=== PATIENT | female | born 1960 | race Caucasian/White ===

== ENCOUNTER 2021-12-24 10:39 | Observation (INO) ==
[2021-12-24] MEDS ORDERED: TOPROL XL PO ONE (10:53)
--- NOTE | 2021-12-24 10:56 | DR.GENAD ---
HPI Time Seen Time Seen by Provider: 12/24/21 10:54 PE Vital Signs Vitals: Temperature 98.1 F Pulse Rate 162 Respiratory Rate 22 Blood Pressure 142/95 O2 Sat by Pulse Oximetry 99 ROR Labs Reviewed Result Diagrams: 12/24/21 11:40 12/24/21 11:40 Laboratory: WBC 8.4 X10^3/uL (3.6-10.0) 12/24/21 11:40 RBC 4.65 X10^6/uL (3.5-5.4) 12/24/21 11:40 Hgb 13.4 g/dL (12.0-16.0) 12/24/21 11:40 Hct 38.8 % (36.0-47.0) 12/24/21 11:40 MCV 83.6 fL (80.0-100.0) 12/24/21 11:40 MCH 28.7 pg (27.0-34.0) 12/24/21 11:40 MCHC 34.4 g/dL (33.0-35.0) 12/24/21 11:40 RDW 15.0 % (11.6-16.5) 12/24/21 11:40 Plt Count 276 X10^3/uL (150.0-450.0) 12/24/21 11:40 MPV 8.5 fL (7.4-11.0) 12/24/21 11:40 Neut % (Auto) 64.9 % (42.0-75.0) 12/24/21 11:40 Lymph % (Auto) 20.8 % (21.0-51.0) L 12/24/21 11:40 [place] % (Auto) 5.5 % (0.0-13.0) 12/24/21 11:40 Eos % (Auto) 8.1 % (0.9-2.9) H 12/24/21 11:40 Baso % (Auto) 0.7 % (0.2-1.0) 12/24/21 11:40 Neut # (Auto) 5.5 x10^3/uL (2.2-4.8) H 12/24/21 11:40 Lymph # (Auto) 1.8 X10^3/uL (1.3-2.9) 12/24/21 11:40 [place] # (Auto) 0.5 x10^3/uL (0.3-0.8) 12/24/21 11:40 Eos # (Auto) 0.7 x10^3/uL (0.0-0.2) H 12/24/21 11:40 Baso # (Auto) 0.1 X10^3/uL (0.0-0.1) 12/24/21 11:40 Absolute Nucleated RBC 0.2 /100WBC 12/24/21 11:40 PT 15.5 SECONDS (11.8-14.3) 12/24/21 11:40 INR Target Range - 12/24/21 11:40 INR 1.27 (0.8-1.3) 12/24/21 11:40 APTT 25.2 SECONDS (22.9-36.5) 12/24/21 11:40 PTT Comment - 12/24/21 11:40 D-Dimer 0.63 ug/ml (0.0-0.57) H 12/24/21 11:40 Sodium 142 mmol/L (136-145) 12/24/21 11:40 Corrected Sodium 143 mmol/L (136-145) 12/24/21 11:40 Potassium 3.9 mmol/L (3.5-5.1) 12/24/21 11:40 Chloride 105 mmol/L (98-107) 12/24/21 11:40 Carbon Dioxide 27.0 mmol/L (21-32) 12/24/21 11:40 BUN 14 mg/dL (7-18) 12/24/21 11:40 Creatinine 0.85 mg/dL (0.55-1.02) 12/24/21 11:40 Est GFR (MDRD) Af Amer > 60 (>60) 12/24/21 11:40 Est GFR (MDRD) Non-Af > 60 (>60) 12/24/21 11:40 Glucose 136 mg/dL (65-99) H 12/24/21 11:40 Calcium 9.1 mg/dL (8.5-10.1) 12/24/21 11:40 Corrected Calcium TNP 12/24/21 11:40 Total Bilirubin 0.70 mg/dL (0.2-1.0) 12/24/21 11:40 AST 47 Units/L (15-37) H 12/24/21 11:40 ALT 66 Units/L (12-78) 12/24/21 11:40 Alkaline Phosphatase 70 Units/L (46-116) 12/24/21 11:40 Creatine Kinase 99 Units/L (26-192) 12/24/21 11:40 Troponin I High Sens 9.8 ng/L (4.0-60.0) 12/24/21 11:40 B-Natriuretic Peptide 28.7 pg/mL (0-79) 12/24/21 11:40 Total Protein 7.7 g/dL (6.4-8.2) 12/24/21 11:40 Albumin 3.7 g/dL (3.4-5.0) 12/24/21 11:40 Globulin 4.0 g/dL (2.5-4.5) 12/24/21 11:40 Albumin/Globulin Ratio 0.9 Ratio (1.1-2.1) L 12/24/21 11:40 Opioid Opioid Risk Tool Total: 0 Total Score Risk Category: Low Risk Copyright: Steven GALARZA predicting aberrant behaviors Discharge Plan Discharge Plan Patient Disposition: HOME, SELF-CARE Condition: Stable Prescriptions: No Action furosemide 40 mg tablet 40 mg PO BID atorvastatin 20 mg tablet 20 mg PO HS metformin 850 mg tablet 850 mg PO QDAY levothyroxine 88 mcg tablet 88 mcg PO QDAY potassium chloride 20 mEq tablet,ER particles/crystals 20 meq PO BID gabapentin 300 mg capsule 300 mg PO TID metoprolol succinate 25 mg tablet extended release 24 hr 25 mg PO QDAY albuterol sulfate 90 mcg/actuation HFA aerosol inhaler 2 puff INHALATION Q4H PRN Health Concerns: Post Hospitalization: new medications and changes needed to prevent readmission or further decline. Pt educated and given instructions on all concerns. Plan of Treatment: Continue with present treatment and follow up plan. Pt is to keep follow up appointment as instructed and take medications as ordered. Orders to Discharge Patient Discharge Orders: Transfer (Routine); Ordered 12/24/21 Ordered By: REAGAN GONZALEZ Follow ups/Referrals Follow ups/Referrals: YUMIKO IQBAL [Primary Care Provider] - 3 days Instructions Stand Alone Forms: Precautions for COVID19, [facility], Patient Portal, Social Distancing
[2021-12-24 11:00] VITALS: BMI 43.2
[2021-12-24] MEDS: TOPROL XL PO SCH (11:01)
[2021-12-24] MEDS ORDERED: CARDIZEM INJ 50 MG VIAL IVP ONE (11:48)
--- NOTE | 2021-12-24 11:50 | CT ---
HISTORYRight-sided headacheSTUDYCT brain without contrastCOMPARISONNoneTECHNIQUEMultiple axial images of the brain were obtained from the skull base to the vertex [without] administration of IV contrast.Dose reduction techniques including Automated Exposure Control (AEC) and adjustment of mA and kV were utlized.FINDINGS[No acute intraparenchymal hemorrhage or mass can be identified.] [No extra-axial fluid collections are seen.] [No alteration in the attenuation of the brain parenchyma can be identified to suggest acute or subacute ischemic change.] Mild small vessel ischemic changes are noted in the periventricular supratentorial white matter [the ventricular system is symmetric and nondilated.] [The extracranial structures are grossly unremarkable.]IMPRESSION[No acute intracranial process can be identified.]Electronically signed by: ASAD WALTER (Dec 24, 2021 11:48:30)
[2021-12-24 12:13] LABS: ALANINE AMINOTRANSFERASE 66 Units/L (12-78); ALBUMIN 3.7 g/dL (3.4-5.0); ALKALINE PHOSPHATASE 70 Units/L (46-116); ASPARTATE AMINO TRANSFERASE 47 Units/L (15-37); BLOOD UREA NITROGEN 14 mg/dL (7-18); CALCIUM 9.1 mg/dL (8.5-10.1); CHLORIDE 105 mmol/L (98-107); COR NA(FOR HYPERGLY) 143 mmol/L (136-145); CREATINE KINASE 99 Units/L (26-192); CREATININE 0.85 mg/dL (0.55-1.02); SODIUM 142 mmol/L (136-145); TOTAL PROTEIN 7.7 g/dL (6.4-8.2); eGFR NON BLACK RACES > 60 (>60)
[2021-12-24] MEDS ORDERED: CARDIZEM INJ 125 MG VIAL ONE (12:19)
[2021-12-24] MEDS ORDERED: DILTIAZEM 125mg/125mL-0.7%NACL 125 MG/125 ML PLAST..BAG IV ONE (12:19)
[2021-12-24 12:23] LABS: BASOPHILS # (AUTO) 0.1 X10^3/uL (0.0-0.1); BASOPHILS % (AUTO) 0.7 % (0.2-1.0); EOSINOPHILS # (AUTO) 0.7 x10^3/uL (0.0-0.2); EOSINOPHILS % (AUTO) 8.1 % (0.9-2.9); HEMATOCRIT 38.8 % (36.0-47.0); HEMOGLOBIN 13.4 g/dL (12.0-16.0); LYMPHOCYTES # (AUTO) 1.8 X10^3/uL (1.3-2.9); LYMPHOCYTES % (AUTO) 20.8 % (21.0-51.0); MEAN CORPUSCULAR HEMOGLOBIN 28.7 pg (27.0-34.0); MEAN CORPUSCULAR HGB CONC 34.4 g/dL (33.0-35.0); MEAN CORPUSCULAR VOLUME 83.6 fL (80.0-100.0); MEAN PLATELET VOLUME 8.5 fL (7.4-11.0); MONOCYTES # (AUTO) 0.5 x10^3/uL (0.3-0.8); MONOCYTES % (AUTO) 5.5 % (0.0-13.0); NEUTROPHILS # (AUTO) 5.5 x10^3/uL (2.2-4.8); NEUTROPHILS % (AUTO) 64.9 % (42.0-75.0); RED BLOOD COUNT 4.65 X10^6/uL (3.5-5.4); WHITE BLOOD COUNT 8.4 X10^3/uL (3.6-10.0)
[2021-12-24] MEDS: DILTIAZEM 125mg/125mL-0.7%NACL 125 MG/125 ML PLAST..BAG IV PRN ×2 (12:26→18:48)
[2021-12-24 12:31] LABS: INR 1.27 (0.8-1.3)
--- NOTE | 2021-12-24 16:30 | RAD ---
HISTORYRight sided lei/tachycardia.br HX: Diabetes.br Appendectomy,Cholecysectomy/hysterectomy/Hernia repairSTUDYCHEST, 1 [id number] diastinal silhouette within normal limits. No focal consolidation, pulmonary edema, sizeable pleural effusion, or visible pneumothorax. No acute osseous finding.IMPRESSIONNo acute appearing finding.Electronically signed by: Jae Villegas (Dec 24, 2021 16:28:13)
[2021-12-24] MEDS: ELIQUIS PO SCH (20:34)
[2021-12-24] MEDS ORDERED: CARDIZEM CD 120 MG 24-HR PO SCH (21:00)
[2021-12-24] MEDS ORDERED: TYLENOL 325 MG TAB PO PRN (23:13)
[2021-12-24 23:36] LABS: BILIRUBIN,URINE NEGATIVE (NEGATIVE); BLOOD/HEMOGLOBIN,URINE NEGATIVE (NEGATIVE); GLUCOSE, URINE NEGATIVE (NEGATIVE); KETONES,URINE NEGATIVE (NEGATIVE); LEUKOCYTE ESTERASE ,URINE NEGATIVE (NEGATIVE); NITRITES,URINE NEGATIVE (NEGATIVE); PROTEIN,URINE NEGATIVE (NEGATIVE); UROBILINOGEN,URINE NORMAL (NORMAL)
[2021-12-24 23:41] LABS: APPEARANCE,URINE CLEAR (CLEAR); COLOR,URINE YELLOW (YELLOW)
[2021-12-25 04:54] LABS: BASOPHILS # (AUTO) 0.1 X10^3/uL (0.0-0.1); BASOPHILS % (AUTO) 0.9 % (0.2-1.0); EOSINOPHILS # (AUTO) 0.7 x10^3/uL (0.0-0.2); EOSINOPHILS % (AUTO) 8.4 % (0.9-2.9); HEMATOCRIT 36.3 % (36.0-47.0); HEMOGLOBIN 12.6 g/dL (12.0-16.0); LYMPHOCYTES # (AUTO) 2.7 X10^3/uL (1.3-2.9); LYMPHOCYTES % (AUTO) 31.7 % (21.0-51.0); MEAN CORPUSCULAR HEMOGLOBIN 28.6 pg (27.0-34.0); MEAN CORPUSCULAR HGB CONC 34.6 g/dL (33.0-35.0); MEAN CORPUSCULAR VOLUME 82.5 fL (80.0-100.0); MEAN PLATELET VOLUME 8.2 fL (7.4-11.0); MONOCYTES # (AUTO) 0.4 x10^3/uL (0.3-0.8); MONOCYTES % (AUTO) 5.1 % (0.0-13.0); NEUTROPHILS # (AUTO) 4.7 x10^3/uL (2.2-4.8); NEUTROPHILS % (AUTO) 53.9 % (42.0-75.0); WHITE BLOOD COUNT 8.7 X10^3/uL (3.6-10.0)
[2021-12-25 04:56] LABS: INR 1.37 (0.8-1.3)
[2021-12-25 05:05] LABS: ALANINE AMINOTRANSFERASE 58 Units/L (12-78); ALBUMIN 3.4 g/dL (3.4-5.0); ALKALINE PHOSPHATASE 61 Units/L (46-116); ASPARTATE AMINO TRANSFERASE 44 Units/L (15-37); BLOOD UREA NITROGEN 15 mg/dL (7-18); CALCIUM 8.7 mg/dL (8.5-10.1); CARBON DIOXIDE 27.3 mmol/L (21-32); CHLORIDE 104 mmol/L (98-107); COR NA(FOR HYPERGLY) 141 mmol/L (136-145); CREATININE 0.79 mg/dL (0.55-1.02); SODIUM 140 mmol/L (136-145); TOTAL PROTEIN 7.1 g/dL (6.4-8.2); eGFR NON BLACK RACES > 60 (>60)
[2021-12-25 05:10] LABS: CHOL/HDL RATIO 2.5 (0.0-5.0); MAGNESIUM 2.1 mg/dL (2.0-2.9)
[2021-12-25] MEDS: ELIQUIS PO SCH (09:00)
[2021-12-25] MEDS: TOPROL XL PO SCH (09:00)
[2021-12-25 09:43] VITALS: BP 126/70
--- NOTE | 2021-12-25 10:48 | DR.H&P ---
H&P History & Physical for Day of: H&P Date: 12/24/21 Chief Complaint Chief Complaint: Heart racing Allergies Allergies Allergy/AdvReac Type Severity Reaction Status Date / Time codeine Allergy Verified 12/24/21 11:04 honey Allergy Verified 12/24/21 11:04 metoclopramide [From Reglan] Allergy Verified 12/24/21 11:04 ondansetron [From Zofran] Allergy Verified 12/24/21 11:04 History of Present Illness History of Present Illness: This is a pleasant 61-year-old white female who presented to the emergency department with complaints of her heart racing. She is a patient of Nilay Gudino, nurse practitioner in [place], [place]. She reports she had a recent cardiac work-up per Dr. Chaudhari here in [place], [place]. He told her that she had a heart beat that was skipping from time to time and put her on metoprolol ER. She is found to be in atrial for with RVR last night. We put her in ICU sulk administer a Cardizem drip and change her over to p.o. Cardizem as well. We will start her on Cardizem CD 120 mg p.o. daily on admission and we will continue the drip until her heart rate becomes below 100 then we will stop it. Labs look good overall do not see any elevated cardiac enzymes or ischemic changes on EKG. When she is rate controlled we will discharge home tomorrow. We will go ahead and start her on Eliquis 5 mg p.o. twice daily as well. Past Medical History Past Medical History: Diabetes, Migraines and Hypothyroidism Past Surgical History Surgical History: Appendectomy, Cholecystectomy, Hysterectomy and Other Family History Family Medical History: Diabetes Mellitus, Cancer, Coronary Artery Disease and Hypertension Social History Does patient currently use any type of tobacco product: No Have you used tobacco products in the last 12 months: No Type of Tobacco Use: None Does any household member use tobacco: No Alcohol Use: None Drug Use: None Medications Home Medications: codeine Allergy (Verified 12/24/21 11:04) honey Allergy (Verified 12/24/21 11:04) metoclopramide [From Reglan] Allergy (Verified 12/24/21 11:04) ondansetron [From Zofran] Allergy (Verified 12/24/21 11:04) CONTINUE taking the following medications albuterol sulfate 90 mcg/actuation aerosol inhaler 2 puff inhalation Q4H PRN 12/24/21 [History] atorvastatin 20 mg tablet 20 mg PO HS 12/24/21 [History] furosemide 40 mg tablet 40 mg PO BID 12/24/21 [History] gabapentin 300 mg capsule 300 mg PO TID 12/24/21 [History] levothyroxine 88 mcg tablet 88 mcg PO QDAY 12/24/21 [History] metformin 850 mg tablet 850 mg PO QDAY 12/24/21 [History] metoprolol succinate 25 mg tablet,extended release 24 hr 25 mg PO QDAY 12/24/21 [History] potassium chloride 20 mEq tablet,extended release(part/cryst) 20 meq PO BID 12/24/21 [History] New Prescriptions apixaban 2.5 mg tablet (Eliquis) 2.5 mg PO BID #60 tabs 12/25/21 [Rx] diltiazem HCl 120 mg capsule,extended release 24 hr (Cardizem CD) 120 mg PO QAM #60 caps 12/25/21 [Rx] Labs Result Diagrams: 12/25/21 04:15 12/25/21 04:15 Labs: Laboratory WBC 8.7 X10^3/uL (3.6-10.0) 12/25/21 04:15 RBC 4.40 X10^6/uL (3.5-5.4) 12/25/21 04:15 Hgb 12.6 g/dL (12.0-16.0) 12/25/21 04:15 Hct 36.3 % (36.0-47.0) 12/25/21 04:15 MCV 82.5 fL (80.0-100.0) 12/25/21 04:15 MCH 28.6 pg (27.0-34.0) 12/25/21 04:15 MCHC 34.6 g/dL (33.0-35.0) 12/25/21 04:15 RDW 15.0 % (11.6-16.5) 12/25/21 04:15 Plt Count 298 X10^3/uL (150.0-450.0) 12/25/21 04:15 MPV 8.2 fL (7.4-11.0) 12/25/21 04:15 Neut % (Auto) 53.9 % (42.0-75.0) 12/25/21 04:15 Lymph % (Auto) 31.7 % (21.0-51.0) 12/25/21 04:15 [place] % (Auto) 5.1 % (0.0-13.0) 12/25/21 04:15 Eos % (Auto) 8.4 % (0.9-2.9) H 12/25/21 04:15 Baso % (Auto) 0.9 % (0.2-1.0) 12/25/21 04:15 Neut # (Auto) 4.7 x10^3/uL (2.2-4.8) 12/25/21 04:15 Lymph # (Auto) 2.7 X10^3/uL (1.3-2.9) 12/25/21 04:15 [place] # (Auto) 0.4 x10^3/uL (0.3-0.8) 12/25/21 04:15 Eos # (Auto) 0.7 x10^3/uL (0.0-0.2) H 12/25/21 04:15 Baso # (Auto) 0.1 X10^3/uL (0.0-0.1) 12/25/21 04:15 Absolute Nucleated RBC 0.0 /100WBC 12/25/21 04:15 PT 16.4 SECONDS (11.8-14.3) 12/25/21 04:15 INR Target Range - 12/25/21 04:15 INR 1.37 (0.8-1.3) H 12/25/21 04:15 APTT 28.8 SECONDS (22.9-36.5) 12/25/21 04:15 PTT Comment - 12/25/21 04:15 D-Dimer 0.63 ug/ml (0.0-0.57) H 12/24/21 11:40 Sodium 140 mmol/L (136-145) 12/25/21 04:15 Corrected Sodium 141 mmol/L (136-145) 12/25/21 04:15 Potassium 3.8 mmol/L (3.5-5.1) 12/25/21 04:15 Chloride 104 mmol/L (98-107) 12/25/21 04:15 Carbon Dioxide 27.3 mmol/L (21-32) 12/25/21 04:15 BUN 15 mg/dL (7-18) 12/25/21 04:15 Creatinine 0.79 mg/dL (0.55-1.02) 12/25/21 04:15 Est GFR (MDRD) Af Amer > 60 (>60) 12/25/21 04:15 Est GFR (MDRD) Non-Af > 60 (>60) 12/25/21 04:15 Glucose 124 mg/dL (65-99) H 12/25/21 04:15 POC Glucose (mg/dL) 122 mg/dL (65-99) H 12/25/21 06:30 Calcium 8.7 mg/dL (8.5-10.1) 12/25/21 04:15 Corrected Calcium TNP 12/25/21 04:15 Magnesium 2.1 mg/dL (2.0-2.9) 12/25/21 04:15 Total Bilirubin 0.50 mg/dL (0.2-1.0) 12/25/21 04:15 AST 44 Units/L (15-37) H 12/25/21 04:15 ALT 58 Units/L (12-78) 12/25/21 04:15 Alkaline Phosphatase 61 Units/L (46-116) 12/25/21 04:15 Creatine Kinase 91 Units/L (26-192) 12/24/21 17:15 Troponin I High Sens 17.8 ng/L (4.0-60.0) 12/24/21 22:57 B-Natriuretic Peptide 28.7 pg/mL (0-79) 12/24/21 11:40 Total Protein 7.1 g/dL (6.4-8.2) 12/25/21 04:15 Albumin 3.4 g/dL (3.4-5.0) 12/25/21 04:15 Globulin 3.7 g/dL (2.5-4.5) 12/25/21 04:15 Albumin/Globulin Ratio 0.9 Ratio (1.1-2.1) L 12/25/21 04:15 Triglycerides 86 mg/dL (0-150) 12/25/21 04:15 Cholesterol 101 mg/dL (0-200) 12/25/21 04:15 LDL Cholesterol, Calc 43 mg/dL (0-100) 12/25/21 04:15 HDL Cholesterol 41 mg/dL (40-60) 12/25/21 04:15 Cholesterol/HDL Ratio 2.5 (0.0-5.0) 12/25/21 04:15 Specimen Type Clean catch urine 12/24/21 23:17 Urine Color Yellow (YELLOW) 12/24/21 23:17 Urine Appearance Clear (CLEAR) 12/24/21 23:17 Urine pH 6.0 (5.0 - 8.0) 12/24/21 23:17 Ur Specific [place] 1.020 (1.000-1.030) 12/24/21 23:17 Urine Protein Negative (NEGATIVE) 12/24/21 23:17 Urine Glucose (UA) Negative (NEGATIVE) 12/24/21 23:17 Urine Ketones Negative (NEGATIVE) 12/24/21 23:17 Urine Blood Negative (NEGATIVE) 12/24/21 23:17 Urine Nitrite Negative (NEGATIVE) 12/24/21 23:17 Urine Bilirubin Negative (NEGATIVE) 12/24/21 23:17 Urine Urobilinogen Normal (NORMAL) 12/24/21 23:17 Ur Leukocyte Esterase Negative (NEGATIVE) 12/24/21 23:17 Review of Systems Constitutional: No Symptoms Reported Eyes: No Symptoms Reported ENT: No Symptoms Reported Respiratory: No Symptoms Reported Cardiovascular: Palpitations Gastrointestinal: No Symptoms Reported Genitourinary: No Symptoms Reported Musculoskeletal: No Symptoms Reported Skin: No Symptoms Reported Neurological: No Symptoms Reported Physical Exam Vital Signs: Temperature 98.3 F Pulse Rate 77 Respiratory Rate 18 Blood Pressure 126/70 O2 Sat by Pulse Oximetry 94 Oriented: Normal, Time, Person and Place Eyes: Normal Ear: Normal Nose: Normal Throat: Normal Respiratory: Clear Throughout Cardiovascular: Tachycardia and Irregular Auscultation: Bowel Sounds: Normal Palpation: Normal Tenderness: Normal Skin: Normal Musculoskeletal: Normal Psychiatric: Normal Mood Description: Calm Affect: Normal Speech Pattern: Clear Assessment/Plan (1) Atrial fibrillation with RVR: Status: Acute Plan: Cardizem CD 120 mg p.o. daily, Cardizem drip per protocol until her heart rate is below 100. We will anticoagulate the patient with Eliquis 5 mg p.o. twice carmen (2) Diabetes mellitus type 2 in obese: Status: Acute Plan: Slight scale regular insulin protocol (3) Hypothyroidism: Status: Acute Plan: Resume patient's levothyroxine.
--- NOTE | 2021-12-25 10:52 | PCM.DCPLAN ---
DISCHARGE SUMMARY Admission Date Date of Admission: 12/24/21 Discharge Date Discharge Date: 12/25/21 Admission Diagnoses (1) Atrial fibrillation with RVR: Status: Acute (2) Diabetes mellitus type 2 in obese: Status: Acute (3) Hypothyroidism: Status: Acute Discharge Diagnoses Discharge Diagnosis: 1. Atrial fibrillation 2. Diabetes mellitus type 2 3. Hypothyroidism Discharge Medications Discharge Medications: Home Medication List albuterol sulfate 90 mcg/actuation aerosol inhaler 2 puff inhalation Q4H PRN 12/24/21 [History] atorvastatin 20 mg tablet 20 mg PO HS 12/24/21 [History] furosemide 40 mg tablet 40 mg PO BID 12/24/21 [History] gabapentin 300 mg capsule 300 mg PO TID 12/24/21 [History] levothyroxine 88 mcg tablet 88 mcg PO QDAY 12/24/21 [History] metformin 850 mg tablet 850 mg PO QDAY 12/24/21 [History] metoprolol succinate 25 mg tablet,extended release 24 hr 25 mg PO QDAY 12/24/21 [History] potassium chloride 20 mEq tablet,extended release(part/cryst) 20 meq PO BID 12/24/21 [History] apixaban 2.5 mg tablet (Eliquis) 2.5 mg PO BID #60 tabs 12/25/21 [Rx] diltiazem HCl 120 mg capsule,extended release 24 hr (Cardizem CD) 120 mg PO QAM #60 caps 12/25/21 [Rx] Prescriptions: apixaban [Eliquis] [facility] [place] diltiazem HCl [Cardizem CD] [facility] Hospital Course Vital Signs: Temperature 98.3 F Pulse Rate 77 Respiratory Rate 18 Blood Pressure 126/70 O2 Sat by Pulse Oximetry 94 Latest Lab Results: Laboratory Last Values WBC 8.7 X10^3/uL (3.6-10.0) 12/25/21 04:15 RBC 4.40 X10^6/uL (3.5-5.4) 12/25/21 04:15 Hgb 12.6 g/dL (12.0-16.0) 12/25/21 04:15 Hct 36.3 % (36.0-47.0) 12/25/21 04:15 MCV 82.5 fL (80.0-100.0) 12/25/21 04:15 MCH 28.6 pg (27.0-34.0) 12/25/21 04:15 MCHC 34.6 g/dL (33.0-35.0) 12/25/21 04:15 RDW 15.0 % (11.6-16.5) 12/25/21 04:15 Plt Count 298 X10^3/uL (150.0-450.0) 12/25/21 04:15 MPV 8.2 fL (7.4-11.0) 12/25/21 04:15 Neut % (Auto) 53.9 % (42.0-75.0) 12/25/21 04:15 Lymph % (Auto) 31.7 % (21.0-51.0) 12/25/21 04:15 [place] % (Auto) 5.1 % (0.0-13.0) 12/25/21 04:15 Eos % (Auto) 8.4 % (0.9-2.9) H 12/25/21 04:15 Baso % (Auto) 0.9 % (0.2-1.0) 12/25/21 04:15 Neut # (Auto) 4.7 x10^3/uL (2.2-4.8) 12/25/21 04:15 Lymph # (Auto) 2.7 X10^3/uL (1.3-2.9) 12/25/21 04:15 [place] # (Auto) 0.4 x10^3/uL (0.3-0.8) 12/25/21 04:15 Eos # (Auto) 0.7 x10^3/uL (0.0-0.2) H 12/25/21 04:15 Baso # (Auto) 0.1 X10^3/uL (0.0-0.1) 12/25/21 04:15 Absolute Nucleated RBC 0.0 /100WBC 12/25/21 04:15 PT 16.4 SECONDS (11.8-14.3) 12/25/21 04:15 INR Target Range - 12/25/21 04:15 INR 1.37 (0.8-1.3) H 12/25/21 04:15 APTT 28.8 SECONDS (22.9-36.5) 12/25/21 04:15 PTT Comment - 12/25/21 04:15 D-Dimer 0.63 ug/ml (0.0-0.57) H 12/24/21 11:40 Sodium 140 mmol/L (136-145) 12/25/21 04:15 Corrected Sodium 141 mmol/L (136-145) 12/25/21 04:15 Potassium 3.8 mmol/L (3.5-5.1) 12/25/21 04:15 Chloride 104 mmol/L (98-107) 12/25/21 04:15 Carbon Dioxide 27.3 mmol/L (21-32) 12/25/21 04:15 BUN 15 mg/dL (7-18) 12/25/21 04:15 Creatinine 0.79 mg/dL (0.55-1.02) 12/25/21 04:15 Est GFR (MDRD) Af Amer > 60 (>60) 12/25/21 04:15 Est GFR (MDRD) Non-Af > 60 (>60) 12/25/21 04:15 Glucose 124 mg/dL (65-99) H 12/25/21 04:15 POC Glucose (mg/dL) 122 mg/dL (65-99) H 12/25/21 06:30 Calcium 8.7 mg/dL (8.5-10.1) 12/25/21 04:15 Corrected Calcium TNP 12/25/21 04:15 Magnesium 2.1 mg/dL (2.0-2.9) 12/25/21 04:15 Total Bilirubin 0.50 mg/dL (0.2-1.0) 12/25/21 04:15 AST 44 Units/L (15-37) H 12/25/21 04:15 ALT 58 Units/L (12-78) 12/25/21 04:15 Alkaline Phosphatase 61 Units/L (46-116) 12/25/21 04:15 Creatine Kinase 91 Units/L (26-192) 12/24/21 17:15 Troponin I High Sens 17.8 ng/L (4.0-60.0) 12/24/21 22:57 B-Natriuretic Peptide 28.7 pg/mL (0-79) 12/24/21 11:40 Total Protein 7.1 g/dL (6.4-8.2) 12/25/21 04:15 Albumin 3.4 g/dL (3.4-5.0) 12/25/21 04:15 Globulin 3.7 g/dL (2.5-4.5) 12/25/21 04:15 Albumin/Globulin Ratio 0.9 Ratio (1.1-2.1) L 12/25/21 04:15 Triglycerides 86 mg/dL (0-150) 12/25/21 04:15 Cholesterol 101 mg/dL (0-200) 12/25/21 04:15 LDL Cholesterol, Calc 43 mg/dL (0-100) 12/25/21 04:15 HDL Cholesterol 41 mg/dL (40-60) 12/25/21 04:15 Cholesterol/HDL Ratio 2.5 (0.0-5.0) 12/25/21 04:15 Specimen Type Clean catch urine 12/24/21 23:17 Urine Color Yellow (YELLOW) 12/24/21 23:17 Urine Appearance Clear (CLEAR) 12/24/21 23:17 Urine pH 6.0 (5.0 - 8.0) 12/24/21 23:17 Ur Specific [place] 1.020 (1.000-1.030) 12/24/21 23:17 Urine Protein Negative (NEGATIVE) 12/24/21 23:17 Urine Glucose (UA) Negative (NEGATIVE) 12/24/21 23:17 Urine Ketones Negative (NEGATIVE) 12/24/21 23:17 Urine Blood Negative (NEGATIVE) 12/24/21 23:17 Urine Nitrite Negative (NEGATIVE) 12/24/21 23:17 Urine Bilirubin Negative (NEGATIVE) 12/24/21 23:17 Urine Urobilinogen Normal (NORMAL) 12/24/21 23:17 Ur Leukocyte Esterase Negative (NEGATIVE) 12/24/21 23:17 Hospital Course: They follow admission the patient had no problems and her heart rate was controlled. He was tolerating the Cardizem CD by mouth and also tolerating the Eliquis as well. Her labs continue to look good today with no problems. We will be discharging her home this morning. She can resume her regular home medicines as before her new prescriptions will include Cardizem CD1 120 mg p.o. daily and Eliquis 2.5 mg p.o. twice daily. Patient discharged home in stable condition she will follow-up with her primary care provider in [place], [place] Nilay Gudino, nurse practitioner.
== END 2021-12-25 11:00 | disposition home or self-care (01) ==
LOC: ER 10:40 → INTOOBSV 13:34 → ICU 13:54
PROVIDERS: ADMIT Family Medicine; ATTEND Family Medicine
DX: E11.65 Type 2 diabetes mellitus with hyperglycemia; R51.9 Headache, unspecified; I48.91 Unspecified atrial fibrillation; E03.8 Other specified hypothyroidism; R55 Syncope and collapse; R79.1 Abnormal coagulation profile; E66.9 Obesity, unspecified; R94.31 Abnormal electrocardiogram [ECG] [EKG]